=== PATIENT | female | born 1970 | race Caucasian/White ===

== ENCOUNTER 2017-01-05 19:58 | Emergency (ER) | payer OTHER ==
[~2017-01-05] VITALS: Ht 157.5 cm; Wt 68.5 kg
[2017-01-05 20:00] VITALS: Ht 157.5 cm; Wt 68.5 kg
[2017-01-05] MEDS ORDERED: ONDANSETRON (ODT) 4 MG TAB ODT STA (20:21)
[2017-01-05] MEDS ORDERED: ACETAMINOPHEN 325 MG TAB PO ONE (20:30)
[2017-01-05] MEDS ORDERED: MECLIZINE 12.5 MG TAB PO ONE (20:30)
--- NOTE | 2017-01-05 20:41 | ERD ---
ER Documentation Chief Complaint Date/Time DATE: 01/05/17 TIME: 20:35 Chief Complaint felt dizzy today, headache HPI Patient is a 46-year-old female who presents to the ED with headache and dizziness for the last week. She states that she has right sided headache that has been constant for the last 1 week. She also complains of dizziness that comes and goes. She denies vertigo. She is also complaining of lightheadedness and nausea with no vomiting or diarrhea. She states that she was started on antibiotics 1 week ago for a "stomach infection from her primary care doctor". However she states that prior to these antibiotics she did have a headache. She does have a history of headaches but states that this headache is unlike any other headache she has experienced. She states that this is a very bad headache, 8 out of 10-10 out of 10 and his new headache. She has taken Naprosyn and ibuprofen with minimal relief. ROS All systems reviewed and are negative except as per history of present illness. Medications Home Meds Active Scripts Meclizine Hcl* (Antivert*) 12.5 Mg Tab, 12.5 MG PO Q6H Y for DIZZINESS, #20 TAB Prov:LETICIA ROBERSON PA-C 01/05/17 Ondansetron Hcl* (Zofran*) 4 Mg Tablet, 4 MG PO Q6H for NAUSEA AND/OR VOMITING, #30 TAB Prov:LETICIA ROBERSON PA-C 01/05/17 Acetaminophen/Aspirin/Caffeine* (Excedrin*) 1 Tab Tab, 1 TAB PO BID for 14 Days , TAB Prov:LETICIA ROBERSON PA-C 01/05/17 Allergies Allergies: Coded Allergies: diphenhydramine (Verified Allergy, Unknown, 01/05/17) PMhx/Soc History of Surgery: No Anesthesia Reaction: No Hx Neurological Disorder: No Hx Respiratory Disorders: No Hx Cardiac Disorders: No Hx Psychiatric Problems: No Hx Miscellaneous Medical Probl: Yes (THYROID) Hx Alcohol Use: No Hx Substance Use: No Hx Tobacco Use: No Smoking Status: Never smoker Physical Exam Vitals Vital Signs Date Time Temp Pulse Resp B/P Pulse Ox O2 Delivery O2 Flow Rate FiO2 01/05/17 20:00 97.9 78 20 134/77 99 Physical Exam GENERAL: Well-developed, well-nourished female. Appears in no acute distress. HEAD: Normocephalic, atraumatic. EYES: Pupils are equally reactive bilaterally. EOMs grossly intact. No conjunctival erythema. ENT: Moist mucous membranes. No uvula deviation. No kissing tonsils. No exudates. NECK: Supple. No lymphadenopathy or thyromegaly. No meningismus. negative kernig. negative brudinski. LUNG: Clear to auscultation bilaterally. No rhonchi, wheezing, rales or coarse breath sounds. HEART: Regular rate and rhythm. No murmurs, rubs or gallops. Extremities: Equal pulses bilaterally. No peripheral clubbing, cyanosis or edema. No unilateral leg swelling. NEUROLOGIC: Alert and oriented. Moving all four extremities. 5/5 strength in all extremities. Normal speech. Steady gait. Cranial nerves II through XII intact. SKIN: Normal color. Warm and dry. No rashes or lesions. Capillary refill < 2 seconds Results 24 hrs Current Medications Medications (Trade) Dose Ordered Sig/Jackie Route PRN Reason Start Time Stop Time Status Last Admin Dose Admin Ondansetron HCl (Zofran Odt) 4 mg ONCE STAT ODT 01/05/17 20:21 01/05/17 20:23 DC 01/05/17 21:32 Meclizine HCl (Antivert) 12.5 mg ONCE ONCE PO 01/05/17 20:30 01/05/17 20:31 DC 01/05/17 21:32 Acetaminophen (Tylenol Tab) 650 mg ONCE ONCE PO 01/05/17 20:30 01/05/17 20:31 DC 01/05/17 21:32 Procedures/MDM ER COURSE: I kept the patient and/or family informed of laboratory and diagnostic imaging results throughout the emergency room course. IMAGING STUDIES [place] [id number] Radiology Main Line: [phone] DIAGNOSTIC IMAGING REPORT Patient: LEONARDO HERNANDEZ : 1970 Age: 46 Sex: F MR #: [id number] DOS: 01/05/172020 Ordering MD: LETICIA ROBERSON PA-C Location: [facility] Room/Bed: PROCEDURE: CT brain without contrast CLINICAL INDICATION: Headaches and dizziness for 1 week TECHNIQUE: A CT of the brain was performed utilizing axial sections from the skull base through the vertex without contrast. Sagittal and coronal images were also reformatted. The exam CTDIvol = 45.01 mGy and DLP = 720.23 mGy-cm. COMPARISON: None available FINDINGS: No acute intracranial hemorrhage is identified. There is no mass effect or midline shift. No extra-axial fluid collection is seen. The ventricles and sulci are within normal limits for size and configuration. The density of the brain is within normal limits. Hussein-white differentiation is preserved. The osseous structures are unremarkable. The mastoid air cells and visualized paranasal sinuses are clear. RPTAT:HJJR IMPRESSION: Unremarkable noncontrast CT of the brain. Physician Meredith Date Time Electronically viewed and signed by Physician Meredith on 01/05/2017 21:59 JR/ CC: LETICIA ROBERSON PA-C MEDICATIONS Meclizine, Tylenol, Zofran. Tolerated well with no adverse reaction. MEDICAL DECISION MAKING: This is a 46-year-old female who presents with headache, dizziness 1 week. Vital signs were reviewed. Patient is afebrile. Patient is not hypoxic. Patient is not toxic or ill-appearing. I did discuss risks versus benefits of a CT scan with patient. Since patient headache is new onset and she has never had this headache before and she complains of dizziness and lightheadedness, a CT scan was ordered. CT scan is read by radiologist is unremarkable. Low suspicion for intracranial hemorrhage, meningitis, intracranial mass, concussion , temporal arteritis, stroke, elevated intracranial pressure, seizure. I reexamined patient after administration of medication and she stated improvement in her symptoms and was ready to go home. DISCHARGE: At this time, patient is stable for discharge and outpatient management with no new complaints during the ER course. Patient was sent home with meclizine, Zofran and Excedrin. Patient will be discharged home with instructions to recheck for new or worsening symptoms such as fever, nausea, weakness, LOC and to follow up with primary care in the next 1-2 days. Patient was advised to return to the ER for any new or worsening symptoms. Plan was discussed and patient and/or family understands and agrees. Home instructions were given. Departure Diagnosis: Primary Impression: Headache Headache type: unspecified Headache chronicity pattern: unspecified pattern Intractability: not intractable Qualified Code: R51 - Nonintractable headache, unspecified chronicity pattern, unspecified headache type Condition: Stable LETICIA ROBERSON PA-C Jan 05, 2017 20:40
--- NOTE | 2017-01-05 21:59 | RADRPT ---
PROCEDURE: CT brain without contrast CLINICAL INDICATION: Headaches and dizziness for 1 week TECHNIQUE: A CT of the brain was performed utilizing axial sections from the skull base through th e vertex without contrast. Sagittal and coronal images were also reformatted. The exam CTDIvol = 45. 01 mGy and DLP = 720.23 mGy-cm. COMPARISON: None available FINDINGS: No acute intracranial hemorrhage is identified. There is no mass effect or midline shift. No extra -axial fluid collection is seen. The ventricles and sulci are within normal limits for size and con figuration. The density of the brain is within normal limits. Hussein-white differentiation is preser edward. The osseous structures are unremarkable. The mastoid air cells and visualized paranasal sinuses are clear. RPTAT:HJJR IMPRESSION: Unremarkable noncontrast CT of the brain. Physician Meredith Date Time Electronically viewed and signed by Physician Meredith on 01/05/2017 21:59 /
[2017-01-05] MEDS ORDERED: ONDA4TAB8 PO (22:16)
[2017-01-05] MEDS ORDERED: EXCED PO (22:16)
[2017-01-05] MEDS ORDERED: MECL12.574 PO (22:17)
[2017-01-05 23:13] VITALS: BP 118/76; PULSE 80; RESP 18; TEMP 98.6
== END 2017-01-05 23:14 | disposition home or self-care (01) ==
LOC: FTE 19:58
DX: R51 Headache (principal)
CPT/HCPCS: 70450; Z7502; Z7610